=== PATIENT | male | born 1995 | race Caucasian/White ===

== ENCOUNTER 2018-08-05 07:51 | Emergency (ER) | payer SELFPAY ==
[2018-08-05 07:56] VITALS: BP 119/93; PULSE 83; RESP 16; TEMP 36.8; O2SAT 97
--- NOTE | 2018-08-05 08:02 | W.ED.GENAD ---
Discharge Plan Discharge Details Chief Complaint: RespSymp Primary Care Provider: Shaista Rapp ED Provider: Tavo Heck Home Meds and New Rx's Prescriptions: No Action No Known Home Meds RF: 0 Medical Decision Making 23-year-old male with a history of smoking presents with 2 days of cough. Associated with congestion, sinus pressure. His exam is fairly reassuring. Likely a viral syndrome and will treat with inhaler and guaifenesin. I will prescribe him antibiotics to begin in 2-3 days if not improving. Does not have regular doctor will arrange for him to get one in this community. Discussed return precautions with the at the bedside prior to discharge. Stable for outpatient management. HPI General Mode of arrival: ambulatory. Date/Time Provider Initiated Documentation: 08/05/18 08:01. Limitations to Documentation: no limitations. Information obtained by: patient. History of Present Illness 23 year old M presents to the emergency department with the chief complaint of Cough, described as moderate, Quality is described as constant, and is localized to the chest. Patient reports no radiation. Patient started experiencing this day(s) and it has been constant. No relieving factors improve symptom(s), No exacerbating factors reported . Patient notes cough. Related Data Home Medications Medication Instructions Recorded Confirmed Unknown [No Known Home Meds] 08/05/18 08/05/18 Allergies Allergy/AdvReac Type Severity Reaction Status Date / Time Penicillins Allergy Hives Unverified 08/05/18 08:03 shellfish derived Allergy Unverified 08/05/18 08:03 General Stated Complaint: RespSymp JED: 4 Review of Systems Review of Systems 6 systems reviewed and otherwise negative [facility] Family History Mother No problems noted. Father No problems noted. Sister No problems noted. Sister No problems noted. Grandfather Heart disease Grandfather No problems noted. Grandmother No problems noted. Grandmother No problems noted. FAMILY HISTORY Dementia Depression Hemophilia Social History Smoking/Tobacco Use Status: Current every day Exam Narrative Exam Narrative: GEN: awake, alert, oriented 3. Pleasant, well groomed, interactive. HEAD: Normocephalic, atraumatic ENT: Mucous membranes moist, oropharynx unremarkable, External ear exam unremarkable, tympanic membranes clear EYES: PERRL, EOMI NECK: Full ROM, no ERIC, no menigismus CHEST/RESP: Nontender, clear to auscultation bilateral, 1 rhonchi heard that resolved, scant appreciable end expiratory wheeze CARDIOVASCULAR: RRR, no murmur, rub chito. 2+ Rad pulse bilateral ABDOMEN: Soft, nontender, no mass. +Bowel sounds EXT: Full ROM, no edema, no rash Neuro: Grossly normal neurologic exam, conversant, interactive. Psych: Speech fluent, thoughts congruent, affect normal Course Vital Signs Temperature 36.8 C 08/05/18 07:56 Pulse 83 08/05/18 07:56 Respiratory Rate 16 08/05/18 07:56 Blood Pressure 119/93 H 08/05/18 07:56 Pulse Oximetry 97 08/05/18 07:56 Temperature 36.8 C 08/05/18 07:56 Temperature Source Skin 08/05/18 07:56 Pulse 83 08/05/18 07:56 Respiratory Rate 16 08/05/18 07:56 Blood Pressure 119/93 H 08/05/18 07:56 Blood Pressure Position Sitting 08/05/18 07:56 Pulse Oximetry 97 08/05/18 07:56 Oxygen Delivery Method Room Air 08/05/18 07:56 Oxygen Flow Rate 0 08/05/18 07:56
[2018-08-05] MEDS: Albuterol HFA 8 GM 60 PUFF INH IH (08:23)
[2018-08-05 08:47] VITALS: BP 112/86; PULSE 74; RESP 16; TEMP 36.8; O2SAT 98
--- NOTE | 2018-08-06 14:12 | CMPROGNOTE_ITS ---
Care Management Progress Note 08/06/18-Pt seen for Resp symptoms on 08/05/[address] Chaim Heck . Referral f/u request faxed to [facility] as Dr. Rapp is pt's PCP.
== END 2018-08-05 08:44 | disposition home or self-care (01) ==
PROVIDERS: Emergency Provider Emergency Medicine; PCP Nurse Practitioner Family
DX: J06.9 Acute upper respiratory infection, unspecified (principal); F17.210 Nicotine dependence, cigarettes, uncomplicated
CPT/HCPCS: 99283